=== PATIENT | female | born 1955 ===

== ENCOUNTER 2023-04-01 05:57 | Day surgery (SDC) | payer MEDICARE, BC ==
[2023-04-01] MEDS ORDERED: fentaNYL 100 MCG/2 ML SDV IV ONE ×6 (05:58→07:16)
[2023-04-01] MEDS ORDERED: Midazolam 1 MG/ML 2 ML SDV IV ONE ×7 (05:58→07:06)
[2023-04-01] MEDS ORDERED: Dextrose 5%-0.45% NaCl 1,000 ML IV SCH (06:00)
[2023-04-01] MEDS ORDERED: Midazolam 1 MG/ML 2 ML SDV ONE (06:24)
[2023-04-01] MEDS ORDERED: fentaNYL 100 MCG/2 ML SDV ONE (06:24)
== END 2023-04-01 08:55 | disposition home or self-care (01) ==
LOC: DL.ENDO 05:57
PROVIDERS: ATTEND Internal Medicine Gastroenterology
DX: K57.30 Diverticulosis of large intestine without perforation or abscess without bleeding (principal); K64.4 Residual hemorrhoidal skin tags; K64.8 Other hemorrhoids; E78.5 Hyperlipidemia, unspecified; E11.9 Type 2 diabetes mellitus without complications; I10 Essential (primary) hypertension; E66.09 Other obesity due to excess calories; Z88.2 Allergy status to sulfonamides; Z88.8 Allergy status to other drugs, medicaments and biological substances; Z68.39 Body mass index [BMI] 39.0-39.9, adult
CPT/HCPCS: 45378; J2250; J3010; J7042